=== PATIENT | male | born 1985 | race Caucasian/White ===

== ENCOUNTER 2017-11-07 20:53 | Emergency (ER) | payer OTHER ==
[2017-11-07] MEDS: ONDANSETRON 4 MG INJ IV (23:22)
[2017-11-07] MEDS: HYDROmorphONE 2 MG/ML SYG IV (23:22)
[2017-11-08 00:18] LABS: ADD MAN DIFF? NO
[2017-11-08 00:23] LABS: WHITE BLOOD COUNT 10.8 10^3/ul (4.8-10.8)
[2017-11-08 00:23] LABS: BASOPHILS % 0.4 % (0.0-2.0); EOSINOPHILS # 0.2 10^3/ul (0.0-0.5); EOSINOPHILS % 2.2 % (0.0-7.0); HEMATOCRIT 38.1 % (42.0-52.0); HEMOGLOBIN 13.2 g/dl (14.0-18.0); LYMPHOCYTES # 3.4 10^3/ul (0.8-2.9); LYMPHOCYTES % 30.9 % (15.0-51.0); MEAN CORPUSCULAR HGB CONC 34.6 g/dl (32.0-37.0); MEAN CORPUSCULAR VOLUME 83.7 fl (82.0-101.0); MEAN PLATELET VOLUME 11.7 fl (7.4-10.4); MONOCYTE # 0.7 10^3/ul (0.3-0.9); MONOCYTES % 6.6 % (0.0-11.0); NEUTROPHIL # 6.4 10^3/ul (1.6-7.5); NEUTROPHILS % 59.4 % (39.0-77.0); PLATELET COUNT 428 10^3/UL (140-415); RED BLOOD COUNT 4.55 10^6/ul (4.70-6.10)
[2017-11-08 00:48] LABS: ANION GAP 19 (8-16); BLOOD UREA NITROGEN 26 mg/dl (7-20); CALCIUM 10.5 mg/dl (8.4-10.2); CARBON DIOXIDE 23 mmol/L (21-31); CHLORIDE 95 mmol/L (97-110); POTASSIUM 3.1 mmol/L (3.5-5.1); SODIUM 134 mmol/L (135-144)
[2017-11-08 01:21] LABS: GLUCOSE 475 mg/dl (70-220)
[2017-11-08] MEDS: HYDROmorphONE 1 MG/ML SYG IV (01:59)
[2017-11-08] MEDS: ONDANSETRON 4 MG INJ IV (01:59)
[2017-11-08] MEDS: INSULIN REGULAR, HUMAN 100 UNIT/1 ML 3ML VIAL SC (02:10)
[2017-11-08] MEDS: POTASSIUM CHLORIDE (SR) 20 MEQ TAB PO (05:11)
== END 2017-11-08 06:00 | disposition home or self-care (01) ==
LOC: E/R 20:53
DX: S31.000A Unspecified open wound of lower back and pelvis without penetration into retroperitoneum, initial encounter (principal); J45.909 Unspecified asthma, uncomplicated; I10 Essential (primary) hypertension; E11.9 Type 2 diabetes mellitus without complications; X58.XXXA Exposure to other specified factors, initial encounter; Y92.9 Unspecified place or not applicable; Z87.891 Personal history of nicotine dependence; Z79.4 Long term (current) use of insulin
CPT/HCPCS: 72100; 72131; 72170; 80048; 82962; 85025; 96372; 96374; 96375; 96376; 99285-25

== ENCOUNTER 2017-11-25 18:47 | Emergency (ER) | payer SELFPAY, OTHER | END 2017-11-25 23:19 | disposition left against medical advice (07) | LOC: FTE 18:47 | DX: Z53.21 Procedure and treatment not carried out due to patient leaving prior to being seen by health care provider (principal) ==

== ENCOUNTER 2018-03-21 13:07 | Emergency (ER) | payer OTHER | END 2018-03-21 15:00 | disposition home or self-care (01) | LOC: FTE 13:07 | DX: M79.605 Pain in left leg (principal); I10 Essential (primary) hypertension; E11.9 Type 2 diabetes mellitus without complications; F17.210 Nicotine dependence, cigarettes, uncomplicated; Z79.4 Long term (current) use of insulin | CPT/HCPCS: 71045; 93971; 99284-25 ==

== ENCOUNTER 2019-03-10 11:38 | Emergency (ER) | payer OTHER ==
[2019-03-10] MEDS: IBUPROFEN 800 MG TAB PO (13:37)
== END 2019-03-10 13:46 | disposition home or self-care (01) ==
LOC: FTE 11:38
DX: M79.671 Pain in right foot (principal)
CPT/HCPCS: 73630; 99283-25